=== PATIENT | male | born 1935 | race African-American/Black ===

== ENCOUNTER 2017-03-30 17:21 | Observation (INO) | payer MEDICARE, OTHER ==
[~2017-03-30] VITALS: Ht 180.3 cm; Wt 112.5 kg
[~2017-03-30 17:21] MED LIST: ALBU18HF2 INH; ALBUTEROL SULFATE; ASPI-1073 PO; BENA10TA3 PO; COR3 PO; DILT360C30 PO; FURO-151 PO; GLYB5TAB7 PO; LOVA10TA54 PO; POTA99TA4 PO; PRAZ5CAP PO
[2017-03-30 18:42] LABS: HEMATOCRIT. 35.3 % (42.0-52.0); HEMOGLOBIN. 11.2 g/dL (14.0-18.0); MEAN CORPUSCULAR HEMOGLOBIN 25.4 pg (28.0-32.0); MEAN CORPUSCULAR VOLUME 79.7 fL (80.0-94.0); MEAN PLATELET VOLUME 10.5 fl (7.4-10.4); PLATELET 329 x1000/uL (130-400); RED BLOOD CELL COUNT 4.42 mill/uL (4.7-6.1); RED CELL DISTRIBUTION WIDTH 14.6 % (11.6-14.6)
[2017-03-30 18:47] LABS: INR 1.2; PROTHROMBIN TIME 12.8 sec
[2017-03-30 18:50] LABS: CARBON DIOXIDE 30 mEq/L (21-32); CHLORIDE 102 mEq/L (98-107)
[2017-03-30 18:57] LABS: TROPONIN I 0.03 ng/mL (0.00-0.04)
[2017-03-30] MEDS ORDERED: ASPIRIN 81MG TABLET PO ONE (19:30)
[2017-03-30] MEDS ORDERED: FUROSEMIDE 40MG/4ML VIAL IV ONE (19:30)
[2017-03-30 19:38] LABS: PLATELET ESTIMATE NORMAL
[2017-03-30] MEDS ORDERED: ASPIRIN 81MG EC TABLET PO SCH (23:00)
[2017-03-30] MEDS: BENAZEPRIL 10MG TABLET PO SCH (23:00)
[2017-03-30] MEDS ORDERED: DILTIAZEM HCL 240MG ER (24HR) PO NR (23:00)
[2017-03-30] MEDS ORDERED: TEMAZEPAM 15MG CAPSULE PO PRN (23:00)
[2017-03-30 23:09] VITALS: BP 146/82
[2017-03-30] MEDS ORDERED: DEXTROSE 50% WATER 50ML SYRINGE IV PRN (23:15)
[2017-03-30] MEDS ORDERED: IPRATROPIUM/ALBUTEROL 0.5-3(2.5)MG/3ML NEB HHN PRN (23:30)
[2017-03-31] VITALS: BP 125/66
[2017-03-31] MEDS: POTASSIUM CHLORIDE 20MEQ TABLET SR PO SCH ×2 (00:13→10:37)
[2017-03-31] MEDS: CARVEDILOL 3.125 MG TABLET PO SCH ×2 (00:14→10:37)
[2017-03-31] MEDS: DILTIAZEM HCL 240MG ER (24HR) PO SCH ×2 (00:14→09:00)
[2017-03-31] MEDS: TAMSULOSIN HCL 0.4MG SR CAPSULE PO SCH ×2 (00:14→10:37)
[2017-03-31 04:00] VITALS: BP 108/63
[2017-03-31] MEDS ORDERED: FUROSEMIDE 40MG/4ML VIAL IVP SCH (06:00)
[2017-03-31 06:20] LABS: CARBON DIOXIDE 33 mEq/L (21-32); CHLORIDE 102 mEq/L (98-107); LDL CHOLESTEROL 44 mg/dL (5-100)
[2017-03-31 06:25] LABS: HDL CHOLESTEROL 29 mg/dL (40-59); TROPONIN I 0.04 ng/mL (0.00-0.04)
[2017-03-31 06:31] LABS: HEMATOCRIT. 34.3 % (42.0-52.0); HEMOGLOBIN. 10.9 g/dL (14.0-18.0); MEAN CORPUSCULAR HEMOGLOBIN 25.5 pg (28.0-32.0); RED BLOOD CELL COUNT 4.29 mill/uL (4.7-6.1); RED CELL DISTRIBUTION WIDTH 14.8 % (11.6-14.6)
[2017-03-31] MEDS: BLOOD SUGAR DIAGNOSTIC STRIP TEST SCH ×2 (06:48→12:20)
[2017-03-31] MEDS: INSULIN LISPRO 100 UNITS/ML SUBCUT SCH ×2 (07:50→12:50)
[2017-03-31 08:00] VITALS: BP 109/75
[2017-03-31 08:23] LABS: BG BASE EXCESS 5.2 mmol/L (-2.0-2.0); BG CARBOXYHEMOGLOBIN 0.5 % (0.5-1.5); BG DEOXYHEMOGLOBIN 9.9 % (0.0-5.0); BG FRACTION INSPIRED OXYGEN 21; BG HCO3 ACT 29.8 mmol/L (22.0-26.0); BG METHEMOGLOBIN 0.1 % (0.0-1.5); BG OXYHEMOGLOBIN 89.5 % (94.0-97.0); BG PCO2 43.8 mmHg (35.0-45.0); BG PH 7.451 (7.350-7.450); BG PO2 61.4 mmHg (75.0-100.0); BG SAMPLE SITE RIGHT BRACHIAL; BG TOTAL HEMOGLOBIN 12.1 g/dL (12.0-18.0); BG VENT MODE ROOM AIR
[2017-03-31 08:29] LABS: PLATELET ESTIMATE NORMAL
[2017-03-31 08:32] LABS: MEAN PLATELET VOLUME 10.8 fl (7.4-10.4); PLATELET 310 x1000/uL (130-400)
[2017-03-31] MEDS: BENAZEPRIL 10MG TABLET PO SCH (09:00)
[2017-03-31] MEDS ORDERED: ENOXAPARIN 40MG/0.4ML SYR SUBCUT SCH (09:00)
[2017-03-31] MEDS ORDERED: ENOXAPARIN 30MG/0.3ML SYR SUBCUT SCH (09:00)
[2017-03-31] MEDS ORDERED: ASPIRIN 325MG EC TABLET PO SCH (10:30)
[2017-03-31 12:00] VITALS: BP 106/59
[2017-03-31] MEDS ORDERED: POTASSIUM CHLORIDE 20MEQ TABLET SR PO NR (12:00)
[2017-03-31 13:24] VITALS: BP 106/59
[2017-03-31] MEDS ORDERED: ATORVASTATIN CALCIUM 40MG TABLET PO SCH (21:00)
[2017-03-31] MEDS ORDERED: DILTIAZEM HCL 240MG ER (24HR) PO SCH (23:52)
== END 2017-03-31 14:10 | disposition short-term general hospital (02) ==
LOC: ER 20:19 → 6WST 20:22 → INTOOBSV 20:22 → ENRESERV 21:21 → SUPCPDRO 22:26
PROVIDERS: ADMIT Internal Medicine; ATTEND Internal Medicine
DX: I50.23 Acute on chronic systolic (congestive) heart failure (principal); I48.91 Unspecified atrial fibrillation; J44.9 Chronic obstructive pulmonary disease, unspecified; N40.0 Benign prostatic hyperplasia without lower urinary tract symptoms; E11.9 Type 2 diabetes mellitus without complications; E78.5 Hyperlipidemia, unspecified; I11.0 Hypertensive heart disease with heart failure; R09.02 Hypoxemia; Z87.891 Personal history of nicotine dependence
CPT/HCPCS: 36415; 36600; 71010; 80048; 80053; 80061; 82375; 82805; 82962; 83880; 84443; 84484; 85025; 85610; 93005; 96372; 96374; 96376; 99285; G0378; J1650; J1815; J1940

== ENCOUNTER 2018-05-17 19:05 | Emergency (ER) | payer OTHER ==
[~2018-05-17] VITALS: Ht 180.3 cm; Wt 84.0 kg
[~2018-05-17 19:05] MED LIST changes: -ALBU18HF2 INH; -FURO-151 PO; -GLYB5TAB7 PO; -PRAZ5CAP PO; +PRAZ5CAP2 PO
[2018-05-17] MEDS ORDERED: NA PHOS,M-B/NA PHOS,DI-BA ENEMA 118ML PR ONE (22:00)
[2018-05-17] MEDS ORDERED: MINERAL OIL ENEMA 133ML PR ONE (22:00)
[2018-05-18 00:50] VITALS: BP 101/57
== END 2018-05-18 00:50 | disposition home or self-care (01) ==
LOC: ER 19:05
DX: K59.00 Constipation, unspecified (principal); K62.89 Other specified diseases of anus and rectum; E11.9 Type 2 diabetes mellitus without complications; I11.0 Hypertensive heart disease with heart failure; I50.9 Heart failure, unspecified; E78.00 Pure hypercholesterolemia, unspecified; Z79.82 Long term (current) use of aspirin
CPT/HCPCS: 74018; 99283

== ENCOUNTER 2019-01-16 13:38 | Inpatient (IN) | payer OTHER ==
[~2019-01-16] VITALS: Ht 182.9 cm; Wt 92.5 kg
[~2019-01-16 13:38] MED LIST changes: +BENA10TA10 PO; -BENA10TA3 PO
[2019-01-16] MEDS ORDERED: SODIUM CHLORIDE 0.9% 1,000 ML IV ONE (14:30)
[2019-01-16 15:09] LABS: HEMOGLOBIN. 10.6 g/dL (14.0-18.0); MEAN CORPUSCULAR HEMOGLOBIN 22.4 pg (28.0-32.0); MEAN CORPUSCULAR VOLUME 73.5 fL (80.0-94.0); PLATELET 522 x1000/uL (130-400); RED BLOOD CELL COUNT 4.76 mill/uL (4.7-6.1); RED CELL DISTRIBUTION WIDTH 19.5 % (11.6-14.6)
[2019-01-16 15:14] LABS: CHLORIDE 95 mEq/L (98-107)
[2019-01-16 15:22] LABS: CREATINE KINASE 73 IU/L (39-308)
[2019-01-16 15:23] LABS: INR 1.5; PROTHROMBIN TIME 14.9 sec (9.6-11.0)
[2019-01-16] MEDS ORDERED: SODIUM CHLORIDE 0.9% 1000ML BAG (SEPSIS BOLUS) IV ONE (15:45)
[2019-01-16] MEDS ORDERED: PIPERACILLIN/TAZ 3.375G PREMIX 50 ML IV ONE (15:45)
[2019-01-16] MEDS ORDERED: VANCOMYCIN 1 G PREMIX 200 ML IV ONE (15:45)
[2019-01-16 16:11] LABS: PLATELET ESTIMATE INCREASED
[2019-01-16] MEDS ORDERED: METHYLPREDNISOLONE SOD SUCC 125 MG/2 ML VIAL IV STA (18:04)
[2019-01-16] MEDS ORDERED: ALBUTEROL (0.083%) 2.5MG/3ML NEB HHN STA (18:04)
[2019-01-16] MEDS ORDERED: IPRATROPIUM BROMIDE (0.02%) 0.5MG/2.5ML NEB HHN STA (18:04)
[2019-01-16 18:28] LABS: CLARITY URINE CLEAR (CLEAR); COLOR URINE DARK YELLOW (YELLOW); KETONES URINE NEGATIVE (NEGATIVE); LEUKOCYTE ESTERASE URINE TRACE (NEGATIVE); NITRITE URINE NEGATIVE (NEGATIVE); OCCULT BLOOD URINE NEGATIVE (NEGATIVE); PH URINE 5.5 (4.5-8.0); PROTEIN URINE NEGATIVE (NEGATIVE); SPECIFIC GRAVITY URINE 1.014 (1.005-1.030)
[2019-01-16] MEDS ORDERED: DIGOXIN 500MCG/2ML AMP IV ONE (18:30)
[2019-01-16 20:39] LABS: BG BILEVEL POS AIRWAY PRESSURE 15/5; BG CARBOXYHEMOGLOBIN 0.8 % (0.5-1.5); BG DEOXYHEMOGLOBIN 3.2 % (0.0-5.0); BG FRACTION INSPIRED OXYGEN 40; BG HCO3 ACT 24.9 mmol/L (22.0-26.0); BG METHEMOGLOBIN 0.3 % (0.0-1.5); BG OXYGEN SATURATION 96.8 % (92.0-98.5); BG OXYHEMOGLOBIN 95.7 % (94.0-97.0); BG PCO2 41.5 mmHg (35.0-45.0); BG PH 7.396 (7.350-7.450); BG PIP 15 cmH2O; BG PO2 92.9 mmHg (75.0-100.0); BG SAMPLE SITE LEFT RADIAL; BG TIDAL VOLUME(mL) 471 mL; BG TOTAL HEMOGLOBIN 11.6 g/dL (12.0-18.0); BG VENT MODE MASK - BIPAP; BG VENT RATE 14 set
[2019-01-16 23:00] VITALS: BP 113/47
[2019-01-16 23:50] VITALS: BP 113/47
[2019-01-17] VITALS (12 sets, daily range): BP systolic 82–139; BP diastolic 41–66
[2019-01-17] MEDS ORDERED: PIPERACILLIN/TAZ 3.375G PREMIX 50 ML IV SCH (01:00)
[2019-01-17] MEDS: PIPERACILLIN/TAZ 3.375G PREMIX 50 ML IV SCH ×4 (02:44→22:10)
[2019-01-17] MEDS ORDERED: VANCOMYCIN 1500MG in DEXTROSE 5% WATER 250ML IV SCH (05:00)
[2019-01-17 06:22] LABS: HEMATOCRIT. 35.9 % (42.0-52.0); MEAN CORPUSCULAR HEMOGLOBIN 22.5 pg (28.0-32.0); MEAN CORPUSCULAR VOLUME 73.8 fL (80.0-94.0); MEAN PLATELET VOLUME 11.1 fl (7.4-10.4); PLATELET 516 x1000/uL (130-400); RED BLOOD CELL COUNT 4.87 mill/uL (4.7-6.1)
[2019-01-17] MEDS: APIXABAN 5 MG TABLET PO SCH ×2 (09:00→17:51)
[2019-01-17] MEDS ORDERED: APIXABAN 2.5 MG TABLET PO SCH (09:00)
[2019-01-17] MEDS: FUROSEMIDE 40MG/4ML VIAL IVP SCH ×2 (09:00→21:28)
[2019-01-17] MEDS: CARVEDILOL 3.125 MG TABLET PO SCH ×2 (09:00→21:29)
[2019-01-17 09:59] LABS: PLATELET ESTIMATE INCREASED
[2019-01-17 13:22] LABS: BG BASE EXCESS 2.7 mmol/L (-2.0-2.0); BG CARBOXYHEMOGLOBIN 0.7 % (0.5-1.5); BG FRACTION INSPIRED OXYGEN 32; BG HCO3 ACT 26.6 mmol/L (22.0-26.0); BG METHEMOGLOBIN 0.4 % (0.0-1.5); BG OXYHEMOGLOBIN 94.9 % (94.0-97.0); BG PCO2 38.2 mmHg (35.0-45.0); BG PO2 82.5 mmHg (75.0-100.0); BG SAMPLE SITE LEFT RADIAL; BG TOTAL HEMOGLOBIN 11.5 g/dL (12.0-18.0); BG VENT MODE NASAL CANNULA
[2019-01-17] MEDS: DIGOXIN 125MCG TABLET PO SCH (17:51)
[2019-01-17] MEDS: IPRATROPIUM/ALBUTEROL 0.5-3(2.5)MG/3ML NEB HHN SCH (20:46)
[2019-01-18] VITALS (12 sets, daily range): BP systolic 88–124; BP diastolic 40–83
[2019-01-18] MEDS: IPRATROPIUM/ALBUTEROL 0.5-3(2.5)MG/3ML NEB HHN SCH ×4 (00:56→21:24)
[2019-01-18] MEDS: PIPERACILLIN/TAZ 3.375G PREMIX 50 ML IV SCH ×4 (04:34→23:17)
[2019-01-18] MEDS: VANCOMYCIN 1250MG in DEXTROSE 5% WATER 250ML IV SCH (05:40)
[2019-01-18 07:32] LABS: HEMATOCRIT. 34.3 % (42.0-52.0); HEMOGLOBIN. 10.4 g/dL (14.0-18.0); MEAN CORPUSCULAR HEMOGLOBIN 22.3 pg (28.0-32.0); MEAN CORPUSCULAR VOLUME 73.6 fL (80.0-94.0); PLATELET 523 x1000/uL (130-400); RED BLOOD CELL COUNT 4.66 mill/uL (4.7-6.1); RED CELL DISTRIBUTION WIDTH 19.3 % (11.6-14.6)
[2019-01-18] MEDS: APIXABAN 5 MG TABLET PO SCH ×2 (08:59→17:29)
[2019-01-18] MEDS: CARVEDILOL 3.125 MG TABLET PO SCH ×2 (09:00→09:02)
[2019-01-18] MEDS: FUROSEMIDE 40MG/4ML VIAL IVP SCH ×2 (09:09→21:26)
[2019-01-18] MEDS: LOSARTAN POTASSIUM 25 MG TABLET PO SCH (12:30)
[2019-01-18] MEDS ORDERED: POTASSIUM CHLORIDE 20MEQ TABLET SR PO SCH (12:30)
[2019-01-18 16:53] LABS: PLATELET ESTIMATE INCREASED
[2019-01-18] MEDS: DIGOXIN 125MCG TABLET PO SCH (17:29)
[2019-01-18] MEDS ORDERED: CARVEDILOL 3.125 MG TABLET PO SCH (21:00)
[2019-01-18] MEDS: CARVEDILOL 6.25 MG TABLET PO SCH (21:27)
[2019-01-19] VITALS (12 sets, daily range): BP systolic 90–142; BP diastolic 29–82
[2019-01-19] MEDS: PIPERACILLIN/TAZ 3.375G PREMIX 50 ML IV SCH (05:35)
[2019-01-19] MEDS: VANCOMYCIN 1250MG in DEXTROSE 5% WATER 250ML IV SCH (05:41)
[2019-01-19 07:01] LABS: HEMOGLOBIN. 10.5 g/dL (14.0-18.0); MEAN CORPUSCULAR HEMOGLOBIN 22.6 pg (28.0-32.0); PLATELET 528 x1000/uL (130-400); RED BLOOD CELL COUNT 4.65 mill/uL (4.7-6.1); RED CELL DISTRIBUTION WIDTH 19.5 % (11.6-14.6)
[2019-01-19 07:43] LABS: DIGOXIN 0.6 ng/mL (0.9-2.0)
[2019-01-19] MEDS: IPRATROPIUM/ALBUTEROL 0.5-3(2.5)MG/3ML NEB HHN SCH ×3 (08:10→21:12)
[2019-01-19] MEDS ORDERED: POTASSIUM BICARB/CIT ACID 25 MEQ TABLET.EFF PO NR (08:30)
[2019-01-19 08:41] LABS: PLATELET ESTIMATE INCREASED
[2019-01-19] MEDS: LOSARTAN POTASSIUM 25 MG TABLET PO SCH (09:12)
[2019-01-19] MEDS: APIXABAN 5 MG TABLET PO SCH ×2 (09:12→17:58)
[2019-01-19] MEDS: POTASSIUM CHLORIDE 20MEQ TABLET SR PO SCH ×2 (09:12→17:58)
[2019-01-19] MEDS: CARVEDILOL 6.25 MG TABLET PO SCH ×2 (09:12→20:34)
[2019-01-19] MEDS: FUROSEMIDE 40MG TABLET PO SCH ×2 (09:12→20:34)
[2019-01-19 13:44] LABS: BG BASE EXCESS 3.7 mmol/L (-2.0-2.0); BG CARBOXYHEMOGLOBIN 0.9 % (0.5-1.5); BG FRACTION INSPIRED OXYGEN 21; BG HCO3 ACT 27.6 mmol/L (22.0-26.0); BG METHEMOGLOBIN 0.4 % (0.0-1.5); BG OXYGEN SATURATION 91.9 % (92.0-98.5); BG OXYHEMOGLOBIN 90.7 % (94.0-97.0); BG PCO2 39.3 mmHg (35.0-45.0); BG PH 7.465 (7.350-7.450); BG SAMPLE SITE RIGHT BRACHIAL; BG TOTAL HEMOGLOBIN 11.6 g/dL (12.0-18.0); BG VENT MODE ROOM AIR
[2019-01-19] MEDS: DIGOXIN 125MCG TABLET PO SCH (17:58)
[2019-01-20] VITALS (10 sets, daily range): BP systolic 94–107; BP diastolic 35–80
[2019-01-20] MEDS: IPRATROPIUM/ALBUTEROL 0.5-3(2.5)MG/3ML NEB HHN SCH ×4 (01:01→21:18)
[2019-01-20] MEDS ORDERED: HALOPERIDOL LACTATE 5MG/ML VIAL IM NR (01:30)
[2019-01-20 06:57] LABS: HEMATOCRIT. 33.5 % (42.0-52.0); HEMOGLOBIN. 10.3 g/dL (14.0-18.0); MEAN CORPUSCULAR HEMOGLOBIN 22.4 pg (28.0-32.0); MEAN CORPUSCULAR VOLUME 72.9 fL (80.0-94.0); MEAN PLATELET VOLUME 10.6 fl (7.4-10.4); PLATELET 543 x1000/uL (130-400); RED CELL DISTRIBUTION WIDTH 19.8 % (11.6-14.6)
[2019-01-20 07:14] LABS: CHLORIDE 96 mEq/L (98-107)
[2019-01-20] MEDS: CARVEDILOL 6.25 MG TABLET PO SCH (08:48)
[2019-01-20] MEDS: APIXABAN 5 MG TABLET PO SCH ×2 (08:49→17:21)
[2019-01-20] MEDS: LOSARTAN POTASSIUM 25 MG TABLET PO SCH (08:49)
[2019-01-20] MEDS: POTASSIUM CHLORIDE 20MEQ TABLET SR PO SCH ×2 (08:49→17:20)
[2019-01-20] MEDS: FUROSEMIDE 40MG TABLET PO SCH (08:50)
[2019-01-20 10:16] LABS: PLATELET ESTIMATE INCREASED
[2019-01-20] MEDS: DIGOXIN 125MCG TABLET PO SCH (17:20)
[2019-01-20] MEDS: CARVEDILOL 3.125 MG TABLET PO SCH (20:43)
[2019-01-21] MEDS: IPRATROPIUM/ALBUTEROL 0.5-3(2.5)MG/3ML NEB HHN SCH ×4 (01:45→21:16)
[2019-01-21 06:33] LABS: CHLORIDE 99 mEq/L (98-107)
[2019-01-21 07:51] LABS: HEMATOCRIT. 35.1 % (42.0-52.0); HEMOGLOBIN. 10.7 g/dL (14.0-18.0); MEAN CORPUSCULAR HEMOGLOBIN 22.3 pg (28.0-32.0); MEAN CORPUSCULAR VOLUME 73.1 fL (80.0-94.0); MEAN PLATELET VOLUME 10.9 fl (7.4-10.4); PLATELET 554 x1000/uL (130-400); RED BLOOD CELL COUNT 4.81 mill/uL (4.7-6.1); RED CELL DISTRIBUTION WIDTH 19.7 % (11.6-14.6)
[2019-01-21 08:00] VITALS: BP 115/46
[2019-01-21] MEDS: POTASSIUM CHLORIDE 20MEQ TABLET SR PO SCH ×2 (08:38→17:36)
[2019-01-21] MEDS: LOSARTAN POTASSIUM 25 MG TABLET PO SCH (08:38)
[2019-01-21] MEDS: CARVEDILOL 3.125 MG TABLET PO SCH ×2 (08:38→20:56)
[2019-01-21] MEDS: APIXABAN 5 MG TABLET PO SCH ×2 (08:39→17:36)
[2019-01-21] MEDS ORDERED: FUROSEMIDE 40MG TABLET PO SCH (09:00)
[2019-01-21 12:00] VITALS: BP 97/55
[2019-01-21 12:31] LABS: PLATELET ESTIMATE INCREASED
[2019-01-21 16:00] VITALS: BP 98/52
[2019-01-21] MEDS: DIGOXIN 125MCG TABLET PO SCH (17:37)
[2019-01-21] MEDS: FUROSEMIDE 40MG TABLET PO SCH (17:37)
[2019-01-21 20:00] VITALS: BP 138/74
[2019-01-21 22:00] VITALS: BP 123/75
[2019-01-22] VITALS (10 sets, daily range): BP systolic 100–118; BP diastolic 42–87
[2019-01-22] MEDS: IPRATROPIUM/ALBUTEROL 0.5-3(2.5)MG/3ML NEB HHN SCH ×4 (02:39→20:48)
[2019-01-22 07:02] LABS: HEMOGLOBIN. 10.3 g/dL (14.0-18.0); MEAN CORPUSCULAR HEMOGLOBIN 22.2 pg (28.0-32.0); MEAN CORPUSCULAR VOLUME 72.8 fL (80.0-94.0); MEAN PLATELET VOLUME 10.8 fl (7.4-10.4); PLATELET 563 x1000/uL (130-400); RED BLOOD CELL COUNT 4.66 mill/uL (4.7-6.1); RED CELL DISTRIBUTION WIDTH 19.7 % (11.6-14.6)
[2019-01-22 08:26] LABS: CHLORIDE 100 mEq/L (98-107)
[2019-01-22] MEDS: FUROSEMIDE 40MG TABLET PO SCH ×2 (09:00→17:03)
[2019-01-22] MEDS: POTASSIUM CHLORIDE 20MEQ TABLET SR PO SCH ×2 (09:00→17:03)
[2019-01-22] MEDS: APIXABAN 5 MG TABLET PO SCH ×2 (09:01→17:03)
[2019-01-22 09:20] LABS: PLATELET ESTIMATE INCREASED
[2019-01-22] MEDS: LOSARTAN POTASSIUM 25 MG TABLET PO SCH (09:55)
[2019-01-22] MEDS: CARVEDILOL 3.125 MG TABLET PO SCH ×2 (09:55→21:10)
[2019-01-22] MEDS: DIGOXIN 125MCG TABLET PO SCH (17:22)
[2019-01-23] VITALS (7 sets, daily range): BP systolic 98–131; BP diastolic 40–83
[2019-01-23] MEDS: IPRATROPIUM/ALBUTEROL 0.5-3(2.5)MG/3ML NEB HHN SCH ×3 (00:56→15:07)
[2019-01-23] MEDS: LOSARTAN POTASSIUM 25 MG TABLET PO SCH (09:00)
[2019-01-23] MEDS: POTASSIUM CHLORIDE 20MEQ TABLET SR PO SCH (09:42)
[2019-01-23] MEDS: APIXABAN 5 MG TABLET PO SCH (09:42)
[2019-01-23] MEDS: CARVEDILOL 3.125 MG TABLET PO SCH (09:43)
[2019-01-23] MEDS: FUROSEMIDE 40MG TABLET PO SCH (09:43)
== END 2019-01-23 17:00 | DRG 871 ==
LOC: ER 14:31 → 5EST 15:44 → EDBEDREQ 15:48 → EDBEDREQSVC 15:48 → ENRESERV 21:02
PROVIDERS: ADMIT Internal Medicine Critical Care Medicine; ATTEND Internal Medicine Critical Care Medicine
DX: A41.9 Sepsis, unspecified organism (principal); I50.23 Acute on chronic systolic (congestive) heart failure; J18.9 Pneumonia, unspecified organism; J96.01 Acute respiratory failure with hypoxia; I42.9 Cardiomyopathy, unspecified; C94.6 Myelodysplastic disease, not elsewhere classified; C91.10 Chronic lymphocytic leukemia of B-cell type not having achieved remission; I31.3 Pericardial effusion (noninflammatory); I13.0 Hypertensive heart and chronic kidney disease with heart failure and stage 1 through stage 4 chronic kidney disease, or unspecified chronic kidney disease; J44.0 Chronic obstructive pulmonary disease with (acute) lower respiratory infection; N18.3 Chronic kidney disease, stage 3 (moderate); I48.2 Chronic atrial fibrillation; I27.20 Pulmonary hypertension, unspecified; D50.9 Iron deficiency anemia, unspecified; E11.22 Type 2 diabetes mellitus with diabetic chronic kidney disease; E11.51 Type 2 diabetes mellitus with diabetic peripheral angiopathy without gangrene; E78.5 Hyperlipidemia, unspecified; I08.1 Rheumatic disorders of both mitral and tricuspid valves; I45.4 Nonspecific intraventricular block; J98.4 Other disorders of lung; Z51.5 Encounter for palliative care; R62.7 Adult failure to thrive; Z22.322 Carrier or suspected carrier of Methicillin resistant Staphylococcus aureus; Z79.01 Long term (current) use of anticoagulants
CPT/HCPCS: 36415; 36600; 71045; 80048; 80061; 80162; 80202; 82375; 82550; 82805; 83036; 83605; 83735; 83880; 84145; 84484; 92610; 93005; 93306; 93970; 94640; 94660; 96365; 96366; 96367; 96375; 97162; 97166; 97530; 97535; 99291; J1160; J1630; J1940; J2543; J2930; J3370; J7030; J7060; J7611; J7620